=== PATIENT | female | born 1980 | race Hispanic/Latino ===

== ENCOUNTER 2017-11-02 12:21 | Emergency (ER) | payer OTHER ==
[2017-11-02 12:34] VITALS: BMI 34.0
[2017-11-02] MEDS ORDERED: Sodium Chloride 0.9% 1,000 ML IV STA (13:19)
[2017-11-02 13:52] LABS: BASO # 0.1 K/uL (0.0-0.2); BASO % 0.5 % (0.0-2.0); EOS # 0.1 K/uL (0.0-0.7); HEMOGLOBIN 16.2 g/dL (12.0-16.0); LYMPH # 1.6 K/uL (1.0-4.3); LYMPH % 12.9 % (20.0-40.0); MEAN CELL VOLUME 96.1 fl (81.0-99.0); MEAN CORPUSCULAR HEMOGLOBIN 32.1 pg (27.0-31.0); MEAN CORPUSCULAR HGB CONC 33.5 g/dL (33.0-37.0); MEAN PLATELET VOLUME 9.4 fl (7.2-11.7); MONO # 0.7 K/uL (0.0-0.8); MONO % 5.9 % (0.0-10.0); NEUT % 79.7 % (50.0-75.0); NRBC % 0.2 % (0.0-0.0); RBC 5.05 Mil/uL (3.80-5.20); RED CELL DISTRIBUTION WIDTH 14.1 % (11.5-14.5); WHITE BLOOD COUNT 12.6 K/uL (4.8-10.8)
--- NOTE | 2017-11-02 13:56 | ED PDOC ---
HPI: Chest Pain Time Seen by Provider: 11/02/17 12:44 Chief Complaint (Nursing): Chest Pain History Per: Patient History/Exam Limitations: no limitations Onset/Duration Of Symptoms: Other (x 2 weeks) Current Symptoms Are (Timing): Still Present Additional Complaint(s): Ms. Bravo is a 37 year old female who presents to the ED for non-exertional, non-pleuritic, not reproducible with movements chest pain associated with palpitations for 2 weeks. Patient states chest pain is present "all the time". Patient states pain comes from epigastric pain that goes to middle of the chest and to the throat. Patient believes its her anxiety that causes her symptoms. Patient reports she had phobias and could not get out of the house. Patient has chronic diarrhea with irritable bowel syndrome as well as intermittent vomitting (usual when having panic attack). Denies fever, syncope, headache, weakness or numbness. No SI or HI. Reports she takes klonopin for her anxiety. PMD: Provider REBEKAH Past Medical History Reviewed: Historical Data, Nursing Documentation, Vital Signs Vital Signs: Last Vital Signs Temp 97.9 F 11/02/17 12:34 Pulse 124 H 11/02/17 16:29 Resp 15 11/02/17 15:31 BP 143/85 11/02/17 12:34 Pulse Ox 97 11/02/17 16:29 - Medical History PMH: Anxiety Other PMH: Panic attacks - Surgical History Surgical History: Cholecystectomy - Family History Family History: States: Unknown Family Hx - Immunization History Hx Tetanus Toxoid Vaccination: No Hx Influenza Vaccination: No Hx Pneumococcal Vaccination: No - Allergies Allergies/Adverse Reactions: Allergies Allergy/AdvReac Type Severity Reaction Status Date / Time No Known Allergies Allergy Verified 11/02/17 13:18 GERALDINE Risk Score for UA/NSTEMI - GERALDINE Risk Score Age > 64: NO 3 or more CAD Risk Factors: NO Known CAD (Stenosis greater than 50%): NO Aspirin use in past 7 days: NO Severe Angina: NO EKG ST changes greater than 0.5mm: NO Positive Cardiac Marker: NO GERALDINE Score: 0 Risk %: 5% Wells Criteria for PE - Wells Criteria for Pulmonary Embolism Clinical Signs and Symptoms of DVT: No P.E is #1 Diagnosis, or Equally Likely: No Heart Rate >100: No Immobilization at least 3 days;Surgery previous 4 weeks: No Previous, objectively diagnosed PE or DVT: No Hemoptysis: No Malignancy w/treatment within 6 months, or palliative: No Total Score: 0 Review of Systems ROS Statement: Except As Marked, All Systems Reviewed And Found Negative Constitutional: Negative for: Fever, Weakness, Other (numbness) Cardiovascular: Positive for: Chest Pain, Palpitations Gastrointestinal: Positive for: Vomiting (intermittent ), Diarrhea (chronic), Other Neurological: Negative for: Headache, Other (syncope) Psych: Positive for: Anxiety. Negative for: Suicidal ideation, Other ( homicidal ideation) Physical Exam - Reviewed Nursing Documentation Reviewed: Yes Vital Signs Reviewed: Yes - Physical Exam Appears: Positive for: No Acute Distress. Negative for: Well ((+): appears anxious) Head Exam: Positive for: ATRAUMATIC, NORMAL INSPECTION, NORMOCEPHALIC Skin: Positive for: Normal Color, Warm, Dry Eye Exam: Positive for: Normal appearance, EOMI, PERRL ENT: Positive for: Normal ENT Inspection Neck: Positive for: Normal Cardiovascular/Chest: Positive for: Tachycardia. Negative for: Regular Rate, Rhythm ((+): Regular rate) Respiratory: Negative for: Accessory Muscle Use, Respiratory Distress Gastrointestinal/Abdominal: Positive for: Normal Exam, Soft. Negative for: Tenderness Extremity: Positive for: Normal ROM. Negative for: Deformity Neurologic/Psych: Positive for: Alert, hand patcher II-XII, Oriented (x 3) - Laboratory Results Result Diagrams: 11/02/17 13:40 11/02/17 13:40 - ECG ECG Rhythm: Positive for: Normal QRS, Sinus Tachycardia. Negative for: Normal ST Segment, ST/T Changes Rate: 124 O2 Sat by Pulse Oximetry: 97 (RA) Pulse Ox Interpretation: Normal Medical Decision Making Medical Decision Making: Time: 13:18 Impression(s): Chest Pain, Panic Attacks Differentials include, but not limited to: Anxiety Disorder, ACS, PE Plan: - EKG - BMP - Troponin I - Crisis Evaluation - CBC - D-Dimer - Partial Thromboplastin Time - Prothrombin Time - Ativan 1 mg IV ONCE - Sodium Chloride 0.9% 1,000 ml IV 1,000 mls/hr Labs reviewed. No clinical abnormalities. Patient seen by structural metal worker and patient is cleared for discharge. Diagnosis is adjustment disorder. Upon provider evaluation patient is medically stable, and requires no further treatment in the ED at this time. Patient will be discharged. Counseling was provided and all questions were answered regarding diagnosis. There is agreement to discharge plan. Return if symptoms persist or worsen. Scribe Attestation: Documented by Damon Machuca, acting as a scribe for Linda Torres MD. Provider Scribe Attestation: All medical record entries made by the Scribe were at my direction and personally dictated by me. I have reviewed the chart and agree that the record accurately reflects my personal performance of the history, physical exam, medical decision making, and the department course for this patient. I have also personally directed, reviewed, and agree with the discharge instructions and disposition. Disposition - Clinical Impression Clinical Impression: Chest pain, Anxiety - Patient ED Disposition Is Patient to be Admitted: No Doctor Will See Patient In The: Office Counseled Patient/Family Regarding: Studies Performed, Diagnosis, Need For Followup - Disposition Referrals: [facility] [Outside] Disposition: Routine/Home Disposition Time: 16:20 Condition: GOOD Additional Instructions: Follow up with your PCP in 2-3 days. Return for worsening. Take your medications as instructed. Instructions: Chest Pain, Anxiety, Adult (DC)
[2017-11-02 14:03] LABS: INR 0.9 (0.9-1.2); PARTIAL THROMBOPLASTIN TIME 27.7 Seconds (25.6-37.1); PROTHROMBIN TIME 10.4 Seconds (9.8-13.1)
[2017-11-02 14:05] LABS: BLOOD UREA NITROGEN 10 mg/dl (7-17); CALCIUM 9.6 mg/dL (8.4-10.2); GFR AFRICAN-AMERICAN > 60; GFR NON-AFRICAN AMERICAN > 60
[2017-11-02 15:18] LABS: BARBITURATES, UR NEGATIVE (NEGATIVE); BENZODIAZEPINES, UR NEGATIVE (NEGATIVE); OPIATES, UR NEGATIVE (NEGATIVE); PHENCYCLIDINE, UR NEGATIVE (NEGATIVE)
[2017-11-02 16:22] VITALS: PULSE 124; O2SAT 97
[2017-11-02 16:41] VITALS: BP 127/77; RESP 16; TEMP 98.8
--- NOTE | 2017-11-02 19:07 | CARD ---
APPROVED REPORT EKG Measurement Heart [id number] <Conclusion> Sinus tachycardia Otherwise normal ECG
== END 2017-11-02 16:35 | disposition home or self-care (01) ==
LOC: H.ER 12:21
DX: R07.89 Other chest pain (principal); F41.9 Anxiety disorder, unspecified; F41.0 Panic disorder [episodic paroxysmal anxiety]; F43.20 Adjustment disorder, unspecified; K58.9 Irritable bowel syndrome, unspecified
CPT/HCPCS: 80048; 80324; 80345; 80346; 80349; 80353; 80358; 80361; 81025; 83992; 84484; 85025; 85378; 85610; 85730; 93005; 96360; 99284; J2060; J7040